=== PATIENT | female | born 1980 | race Two or more races ===

== ENCOUNTER → 2016-08-07 | Outpatient (CLI) | payer OTHER ==
--- NOTE | 2016-08-07 14:53 | KCIC ---
PROCEDURE Single-view chest HISTORY Positive TB skin test COMPARISON None FINDINGS The cardiac silhouette is not enlarged No vascular congestion No pleural effusion. No focal airspace consolidation identified. No evidence of pneumothorax. IMPRESSION No evidence of active disease in the chest. Electronically signed by: Josafat Lazar MD (Aug 07, 2016 14:51:42)
== END | disposition home or self-care (01) ==
LOC: KCIC 14:16
PROVIDERS: ATTEND Family Medicine
DX: R76.11 Nonspecific reaction to tuberculin skin test without active tuberculosis (principal)
CPT/HCPCS: 71010